=== PATIENT | female | born 1990 | race Two or more races ===

== ENCOUNTER 2022-03-04 06:39 | Emergency (ER) | payer SELFPAY | END 2022-03-04 07:11 | LOC: ER 06:39 | DX: R51.9 Headache, unspecified (principal); F10.10 Alcohol abuse, uncomplicated; F17.210 Nicotine dependence, cigarettes, uncomplicated; V49.69XA Unspecified car occupant injured in collision with other motor vehicles in traffic accident, initial encounter; Y93.89 Activity, other specified; Y92.89 Other specified places as the place of occurrence of the external cause; Y99.8 Other external cause status ==